=== PATIENT | female | born 1980 | race Caucasian/White ===

== ENCOUNTER → 2017-03-26 | Outpatient (CLI) | payer OTHER | LOC: M SMT 10:21 | PROVIDERS: ATTEND Advanced Practice Midwife | DX: O20.0 Threatened abortion (principal); Z3A.00 Weeks of gestation of pregnancy not specified ==

== ENCOUNTER → 2017-03-28 | Outpatient (CLI) | payer OTHER | LOC: M SMT 10:46 | PROVIDERS: ATTEND Advanced Practice Midwife | DX: O20.0 Threatened abortion (principal); Z3A.00 Weeks of gestation of pregnancy not specified ==

== ENCOUNTER → 2017-04-04 | Outpatient (CLI) | payer OTHER | LOC: M SMT 10:33 | PROVIDERS: ATTEND Advanced Practice Midwife | DX: O20.0 Threatened abortion (principal); Z3A.00 Weeks of gestation of pregnancy not specified ==

== ENCOUNTER → 2017-04-11 | Outpatient (CLI) | payer OTHER | LOC: M SMT 11:23 | PROVIDERS: ATTEND Advanced Practice Midwife | DX: O20.0 Threatened abortion (principal); Z3A.00 Weeks of gestation of pregnancy not specified ==

== ENCOUNTER → 2017-06-09 | Outpatient (CLI) | payer OTHER ==
[2017-06-09 13:08] LABS: BASO % 0.3 % (0.0-1.0); EOS % 0.5 % (0.0-3.0); LARGE UNSTAINED CELL # 0.1 K/mm3 (0.0-0.4); LYMPH # 1.1 K/mm3 (1.5-4.5); LYMPH % 10.6 % (24.0-44.0); MEAN CORPUSCULAR HEMOGLOBIN 29.3 pg (27.0-33.0); MEAN CORPUSCULAR HGB CONC 35.2 g/dl (32.0-36.5); MEAN CORPUSCULAR VOLUME 83.4 fl (80.0-96.0); MONO # 0.4 K/mm3 (0.0-0.8); MONO % 3.6 % (0.0-5.0); NEUTROPHILS # 8.5 K/mm3 (1.8-7.7); PLATELET COUNT, AUTOMATED 251 k/mm3 (150-450); RED CELL DISTRIBUTION WIDTH 13.4 % (11.5-14.5); WHITE BLOOD COUNT 10.1 K/mm3 (4.0-10.0)
[2017-06-09 14:04] LABS: HBsAg Prenatal NEGATIVE (NEGATIVE)
== END ==
LOC: M SMT 11:36
PROVIDERS: ATTEND Obstetrics & Gynecology
DX: Z34.81 Encounter for supervision of other normal pregnancy, first trimester (principal)

== ENCOUNTER → 2017-06-10 | Outpatient (CLI) | payer OTHER ==
--- NOTE | 2017-06-10 09:58 | REP ---
First trimester obstetric ultrasound for dating and viability and vaginal spotting: There is an intrauterine gestational sac with a pole. The heart rate is 160 beats per minute. The pole crown-rump length is 3.4 cm corresponding to 10 weeks 2 days gestational age. The GABRIELA is 01/04/2018. Gestational age by LMP is 9 weeks 5 days. There is a 3.1 x 1.9 x 4.9 cm subchorionic hematoma along the superior margin of the station sac. This tracks inferiorly and at the lower uterine segment there is a second subchorionic hematoma measuring 2.2 x 1.1 x 1.3 cm. There is a normal size yolk sac measuring 5 mm. The maternal adnexa and cul-de-sac are unremarkable. Impression: 16-ytib-2-day viable intrauterine gestation. There is a large subchorionic hematoma at the fundal portion of the gestational sac tracking inferiorly to the inferior portion of the gestational sac. Follow-up is recommended. 2 cm Signed by Rick Baker MD 06/10/2017 09:49 A
== END ==
LOC: M RAD 08:49
PROVIDERS: ATTEND Advanced Practice Midwife
DX: O26.851 Spotting complicating pregnancy, first trimester (principal); Z3A.10 10 weeks gestation of pregnancy

== ENCOUNTER → 2017-08-18 | Outpatient (REF) | payer OTHER | LOC: M LAB REF 17:16 | PROVIDERS: ATTEND Obstetrics & Gynecology | DX: Z36.89 Encounter for other specified antenatal screening (principal); Z3A.00 Weeks of gestation of pregnancy not specified ==

== ENCOUNTER → 2017-09-26 | Outpatient (REF) | payer OTHER | LOC: M LAB REF 16:57 | DX: Z34.82 Encounter for supervision of other normal pregnancy, second trimester (principal) ==

== ENCOUNTER 2017-10-23 19:01 | Outpatient (CLI) | payer OTHER | END 2017-10-23 20:20 | disposition home or self-care (01) | LOC: M LDO 19:01 | DX: O36.8130 Decreased fetal movements, third trimester, not applicable or unspecified (principal); Z3A.28 28 weeks gestation of pregnancy; O62.0 Primary inadequate contractions | CPT/HCPCS: 59025 ==

== ENCOUNTER → 2017-11-17 | Outpatient (CLI) | payer OTHER ==
[2017-11-17 13:19] LABS: HEMATOCRIT 33.1 % (36.0-47.0); MEAN CORPUSCULAR HEMOGLOBIN 28.1 pg (27.0-33.0); MEAN CORPUSCULAR HGB CONC 33.2 g/dl (32.0-36.5); MEAN CORPUSCULAR VOLUME 84.4 fl (80.0-96.0); PLATELET COUNT, AUTOMATED 226 10^3/uL (150-450); RED BLOOD COUNT 3.92 10^6/uL (4.00-5.40); RED CELL DISTRIBUTION WIDTH 12.4 % (11.5-14.5); WHITE BLOOD COUNT 8.5 10^3/uL (4.0-10.0)
[2017-11-17 13:58] LABS: GLUCOSE CHALLENGE TEST 1 HOUR 129 MG/DL (LESS THAN 140)
== END ==
LOC: M SMT 10:09
DX: Z34.82 Encounter for supervision of other normal pregnancy, second trimester (principal); Z3A.00 Weeks of gestation of pregnancy not specified

== ENCOUNTER 2017-11-27 13:28 | Outpatient (CLI) | payer OTHER ==
[2017-11-27 17:18] LABS: HEMATOCRIT 32.5 % (36.0-47.0); MEAN CORPUSCULAR HGB CONC 33.8 g/dl (32.0-36.5); MEAN CORPUSCULAR VOLUME 82.7 fl (80.0-96.0); PLATELET COUNT, AUTOMATED 218 10^3/uL (150-450); RED BLOOD COUNT 3.93 10^6/uL (4.00-5.40); RED CELL DISTRIBUTION WIDTH 12.1 % (11.5-14.5); WHITE BLOOD COUNT 9.5 10^3/uL (4.0-10.0)
[2017-11-27] MEDS: BETAMETHASONE SOLUSPAN 6MG/ML INJ 5ML (J0702) IM ×2 (17:30→17:31)
[2017-11-27 17:45] LABS: AMPHETAMINES URINE REFLEX NEGATIVE (NEGATIVE); BARBITURATES URINE REFLEX NEGATIVE (NEGATIVE); BENZODIAZEPINES URINE REFLEX NEGATIVE (NEGATIVE); CANNABINOIDS URINE REFLEX NEGATIVE (NEGATIVE); COCAINE METABOLITE URINE REFLE NEGATIVE (NEGATIVE); METHADONE URINE REFLEX NEGATIVE (NEGATIVE); OPIATES URINE REFLEX NEGATIVE (NEGATIVE); PHENCYCLIDINE URINE REFLEX NEGATIVE (NEGATIVE)
[2017-11-28] MEDS: LR 1,000 ML IV (13:42)
[2017-11-28] MEDS: BETAMETHASONE SOLUSPAN 6MG/ML INJ 5ML (J0702) IM (17:22)
== END 2017-11-29 09:32 | disposition home or self-care (01) ==
LOC: M LDO 13:28
DX: O47.03 False labor before 37 completed weeks of gestation, third trimester (principal); Z3A.33 33 weeks gestation of pregnancy; Z88.3 Allergy status to other anti-infective agents; Z91.013 Allergy to seafood
CPT/HCPCS: J0702

== ENCOUNTER 2017-12-04 14:01 | Outpatient (CLI) | payer OTHER | END 2017-12-04 16:10 | disposition home or self-care (01) | LOC: M LDO 14:01 | DX: O47.03 False labor before 37 completed weeks of gestation, third trimester (principal); Z3A.34 34 weeks gestation of pregnancy; O32.1XX0 Maternal care for breech presentation, not applicable or unspecified; O26.873 Cervical shortening, third trimester | CPT/HCPCS: 59025 ==

== ENCOUNTER 2019-04-19 18:23 | Day surgery (SDC) | payer OTHER ==
[~2019-04-19] VITALS: Ht 165.1 cm; Wt 54.1 kg
[~2019-04-19 18:23] MED LIST: COLA100C5 PO; IBUP-1114 PO; OXYC1TAB23 PO; PRENTAB9 PO
[2019-04-19 19:12] LABS: BASO # 0.1 10^3/uL (0.0-0.2); BASO % 0.7 % (0.0-1.0); EOS # 0.1 10^3/uL (0.0-0.50); EOS % 1.2 % (0.0-3.0); HEMATOCRIT 27.4 % (36.0-47.0); HEMOGLOBIN 8.3 g/dl (12.0-15.5); LYMPH # 1.1 10^3/uL (1.5-4.5); LYMPH % 15.6 % (24.0-44.0); MEAN CORPUSCULAR HEMOGLOBIN 23.2 pg (27.0-33.0); MEAN CORPUSCULAR HGB CONC 30.3 g/dl (32.0-36.5); MEAN CORPUSCULAR VOLUME 76.5 fl (80.0-96.0); MONO # 0.4 10^3/uL (0.0-0.8); MONO % 5.6 % (0.0-5.0); NEUTROPHILS # 5.2 10^3/uL (1.8-7.7); NEUTROPHILS % 76.6 % (36.0-66.0); PLATELET COUNT, AUTOMATED 253 10^3/uL (150-450); RED BLOOD COUNT 3.58 10^6/uL (4.00-5.40); WHITE BLOOD COUNT 6.7 10^3/uL (4.0-10.0)
[2019-04-19 19:31] LABS: INR 1.19; PROTHROMBIN TIME 14.8 SECONDS (11.8-14.0)
[2019-04-19 20:06] LABS: HCG, SERUM QUANTITATIVE 4686 MIU/ML
[2019-04-19] MEDS ORDERED: NS 1,000 ML IV ONE (20:45)
[2019-04-19 20:54] LABS: BLOOD UREA NITROGEN 8 MG/DL (7-18); CALCIUM LEVEL 7.4 MG/DL (8.5-10.1); CARBON DIOXIDE LEVEL 21 MEQ/L (21-32); CHLORIDE LEVEL 110 MEQ/L (98-107); CREATININE FOR GFR 0.53 MG/DL (0.55-1.30); GLOMERULAR FILTRATION RATE > 60.0 (>60); GLUCOSE, FASTING 86 MG/DL (70-100); POTASSIUM SERUM 3.6 MEQ/L (3.5-5.1); SODIUM LEVEL 139 MEQ/L (136-145)
[2019-04-19] MEDS ORDERED: ETOMIDATE INJ 20MG/10ML VIAL As Ordered ONE (22:47)
[2019-04-19] MEDS ORDERED: dexameTHASONE 4 MG/ML 1ML VIAL (J1100) As Ordered ONE (22:47)
[2019-04-19] MEDS ORDERED: fentaNYL 100 MCG/2 ML INJECTION (J3010) As Ordered ONE (22:47)
[2019-04-19] MEDS ORDERED: ONDANSETRON 4MG/2ML VIAL (J2405) As Ordered ONE (22:47)
[2019-04-19] MEDS ORDERED: PROPOFOL 200 MG/20 ML VIAL As Ordered ONE (22:47)
[2019-04-19] MEDS ORDERED: LIDOCAINE 2% INJ 100 MG/5 ML SDV (FOR ANES.) As Ordered ONE (22:47)
[2019-04-19] MEDS ORDERED: MIDAZOLAM INJ 2 MG/2 ML VIAL (J2250) As Ordered ONE (22:47)
--- NOTE | 2019-04-19 22:54 | REPVR ---
EXAM: US First Trimester, Transabdominal EXAM DATE/TIME: 04/19/2019 9:19 PM CLINICAL HISTORY: 38 years old, female; Lmp or gestational age (in weeks): 6w1d; Antepartum complications; Bleeding; ; Additional info: Stefania TECHNIQUE: Imaging protocol: Real-time transabdominal obstetrical ultrasound of the maternal pelvis and a first trimester , less than 14 weeks 0 days, with image documentation. COMPARISON: No relevant prior studies available. FINDINGS: Uterus: The uterus measures 14.0 x 6.0 x 7.6 cm. The endometrium is thickened and irregular with fluid in the endometrial canal. No definite intrauterine gestational sac. Cervix: There is fluid in the endocervical canal. Right adnexa: The right ovary measures 3.6 x 3.6 x 3.1 cm. There is a 1.7 x 1.2 x 1.6 cm corpus luteal cyst. Normal ovarian color flow and spectral doppler waveforms. Left adnexa: The left ovary measures 3.3 x 2.0 x 2.6 cm. Normal ovarian color flow and spectral doppler waveforms. Intraperitoneal: Moderate pelvic fluid. IMPRESSION: Thickened, irregular endometrium with fluid in the endometrial and endocervical canals, no definite intrauterine gestational sac. Moderate fluid in the pelvis. Ectopic can not be excluded. A transvaginal ultrasound is needed for further assessment in this case. Electronically signed by: Raya Greene On 04/19/2019 22:54:31 PM
[2019-04-19] MEDS ORDERED: miSOPROStol 200 MCG TAB (S0191) As Ordered ONE (23:25)
[2019-04-19] MEDS ORDERED: ePHEDrine SULFATE 25 MG/5 ML(5MG/ML) SYRINGE As Ordered ONE (23:36)
[2019-04-19] MEDS ORDERED: KETOROLAC 60 MG/2 ML VIAL (J1885) As Ordered ONE (23:42)
[2019-04-19] MEDS ORDERED: DOXYCYCLINE HYCLATE 100 MG TAB PO ONE (23:45)
[2019-04-20] VITALS (8 sets, daily range): BP systolic 113–142; BP diastolic 63–85
[2019-04-20] MEDS ORDERED: oxyCODONE 5MG TAB As Ordered ONE (00:29)
[2019-04-20] MEDS ORDERED: PROMETHAZINE INJ 25 MG/ML VIAL (J2550) IV PRN (01:00)
[2019-04-20] MEDS ORDERED: fentaNYL 100 MCG/2 ML INJECTION (J3010) IV PRN (01:00)
[2019-04-20] MEDS ORDERED: METOCLOPRAMIDE INJ 10MG/2ML VIAL (J2765) IV PRN (01:00)
[2019-04-20] MEDS ORDERED: oxyCODONE 5MG TAB PO PRN (01:00)
[2019-04-20] MEDS ORDERED: LR 1,000 ML IV SCH (01:00)
[2019-04-20] MEDS: PERCOCET 5MG/325MG TAB PO PRN ×2 (02:32→10:30)
[2019-04-20 07:35] LABS: HEMATOCRIT 34.4 % (36.0-47.0); MEAN CORPUSCULAR HEMOGLOBIN 27.3 pg (27.0-33.0); MEAN CORPUSCULAR HGB CONC 33.4 g/dl (32.0-36.5); MEAN CORPUSCULAR VOLUME 81.7 fl (80.0-96.0); PLATELET COUNT, AUTOMATED 211 10^3/uL (150-450); RED BLOOD COUNT 4.21 10^6/uL (4.00-5.40); WHITE BLOOD COUNT 11.6 10^3/uL (4.0-10.0)
[2019-04-20 07:36] LABS: HEMOGLOBIN 11.5 g/dl (12.0-15.5)
--- NOTE | 2019-04-20 18:08 | RO ---
DATE OF PROCEDURE: 04/19/2019 PREOPERATIVE DIAGNOSIS: Incomplete . POSTOPERATIVE DIAGNOSIS: Incomplete . OPERATIVE PROCEDURE: Dilation, suction and curettage. SURGEON: Briana Pnio MD MED DIR: None. ANESTHESIA: General. ESTIMATED BLOOD LOSS: 250 mL IV FLUIDS: 1 liter lactated Ringer's solution. 2 units of packed red blood cells. URINE OUTPUT: 500 mL SPECIMENS: Intrauterine contents. ANTIBIOTICS GIVEN POSTOPERATIVELY: 200 mg doxycycline. INDICATIONS FOR OPERATION: This patient is a 38-year-old 6, para 3 who presented to the emergency room after recent diagnosis of missed . She was seen earlier in the ER in [place] and was diagnosed with missed . She continued to have bleeding at which point it became heavy and she had a near-syncopal episode and presented to the emergency room for evaluation. Upon initial evaluation, she was tachycardiac, hypertensive and her hemoglobin was initially 8.4. She continued to have brisk bleeding and was counseled and consented for dilation and curettage for incomplete . DESCRIPTION OF OPERATION After informed consent was obtained and written consent was reviewed, the patient was brought to the operating room and was placed under general anesthesia. She was then prepped and draped in normal sterile fashion. A time out in the operating room was then performed identifying the patient, procedure to performed as well as drug allergies. Cro[place]on speculum was then placed removing large amounts of blood and clot. Cervix was already dilated, was further dilated to introduce a #10 curved suction curette. This was attached to suction and the uterus curetted 3 inches through fascia with moderate amounts of tissue obtaned. Sharp curette was then advanced and the uterus curetted in a 360 degree fashion. Minimal amounts of tissue was obtained. Final pass with the suction curette was performed only productive of blood. Instruments were then removed from the patient's vagina. 800 mcg of Cytotec was placed rectally. Speculum was then removed. Bladder was then drained productive of 100 mL of clear urine. The patient was then awakened from anesthesia and taken to recovery in stable condition. Counts were correct. The patient received 2 units of blood preoperatively and she will receive an additional 2 units of blood.
== END 2019-04-20 10:45 | disposition home or self-care (01) ==
LOC: EDBD 18:23 → M ED 18:23 → M SDC 18:24 → M PED 04-20 01:04 → M SDC 04-20 10:45
PROVIDERS: ATTEND Obstetrics & Gynecology
DX: O02.1 Missed abortion (principal)
CPT/HCPCS: 36415; 59820; 76801; 80048; 82330; 82947; 84132; 84295; 84702; 85014; 85025; 85027; 85610; 85730; 86850; 86900; 86901; 86920; 88305; 93976; 99285; J1100; J1885; J2250; J2405; J3010; P9016

== ENCOUNTER → 2020-11-23 | Outpatient (REF) | payer OTHER ==
[~2020-11-23] MED LIST changes: +MULTCAP PO; +NU-I150C PO
== END ==
LOC: M SFHCWAGY 13:07
PROVIDERS: ATTEND Nurse Practitioner Family
DX: Z12.4 Encounter for screening for malignant neoplasm of cervix (principal)

== ENCOUNTER → 2021-08-13 | Outpatient (CLI) | payer OTHER ==
--- NOTE | 2021-08-13 13:23 | REP ---
INDICATION: SCREEN MAMMO. COMPARISON: None, baseline. TECHNIQUE: MLO and CC views bilateral breasts with tomosynthesis. FINDINGS: Heterogeneous dense breast parenchyma appears fairly symmetrical bilaterally. In the right axillary region an oval lobulated nodule likely represents a lymph node. Short axis dimension is 13 mm. Otherwise no mass or architectural distortion is seen bilaterally. No clustered microcalcifications are seen bilaterally. The Volpara volumetric breast density pattern is C. IMPRESSION: BIRADS/ACR category 0, incomplete. Oval lobulated nodule right axillary region with a short axis dimension of 13 mm. This likely represents a lymph node which may be mildly enlarged. Recommend spot compression views right breast and right breast ultrasound to further evaluate. This patient's Tyrer-Cuzick lifetime breast cancer risk assessment score is 16.0%. This mammogram was interpreted with the aid of an FDA-approved computer-aided detection system. The patient states she had a clinical breast exam in July 2021. The patient letter being requested is M0. RECOMMENDATION: Recommend spot compression views and ultrasound right breast as discussed above. <Electronically signed by Rick Urrutia > 08/13/21 [id number]
== END ==
LOC: M WHC 11:45
PROVIDERS: ATTEND Nurse Practitioner Family
DX: Z12.31 Encounter for screening mammogram for malignant neoplasm of breast (principal); N63.10 Unspecified lump in the right breast, unspecified quadrant

== ENCOUNTER → 2021-09-05 | Outpatient (CLI) | payer OTHER ==
--- NOTE | 2021-09-05 17:10 | REP ---
INDICATION: RIGHT BREAST ADD VIEWS. Axillary mass COMPARISON: Screening mammogram, 08/13/2021. TECHNIQUE: 2D and 3D spot compression images of the right breast in the CC and MLO orientations were obtained. Diagnostic right breast ultrasound was performed. FINDINGS: There is a normal appearing right axillary lymph node demonstrated. Right breast ultrasound: Axilla: There are 2 morphologically axillary lymph nodes demonstrated measuring 2.8 x 1.6 cm and 2.2 x 1.3 cm, respectively. IMPRESSION: BIRADS/ACR : Category 2: Benign finding. The patient letter being requested is M2. RECOMMENDATION: Follow-up screening mammogram in 1 year. <Electronically signed by Brody Cullen > 09/05/21 [id number]
== END ==
LOC: M WHC 08:45
PROVIDERS: ATTEND Nurse Practitioner Family
DX: R92.2 Inconclusive mammogram (principal)
CPT/HCPCS: 76642; 77065; G0279

== ENCOUNTER → 2023-02-05 | Outpatient (CLI) | payer SELFPAY ==
[~2023-02-05] MED LIST changes: +IRON150C5 PO; -NU-I150C PO
== END ==
LOC: M WHC 14:15
PROVIDERS: ATTEND Advanced Practice Midwife
DX: Z12.31 Encounter for screening mammogram for malignant neoplasm of breast (principal)

== ENCOUNTER → 2023-02-05 | Outpatient (REF) | payer OTHER | LOC: M PLALAB 15:30 | PROVIDERS: ATTEND Advanced Practice Midwife | DX: Z12.4 Encounter for screening for malignant neoplasm of cervix (principal); R87.618 Other abnormal cytological findings on specimens from cervix uteri | CPT/HCPCS: 87624; G0123 ==

== ENCOUNTER → 2024-02-19 | Outpatient (CLI) | payer OTHER | LOC: M WHC 13:23 | PROVIDERS: ATTEND Advanced Practice Midwife | DX: Z12.31 Encounter for screening mammogram for malignant neoplasm of breast (principal) ==